=== PATIENT | male | born 1960 | race Caucasian/White ===

== ENCOUNTER 2020-04-26 08:16 | Emergency (ER) | payer OTHER, BC ==
[~2020-04-26] VITALS: Ht 193 cm; Wt 125.0 kg
[~2020-04-26 08:16] MED LIST: LATA2.5D6 OP; OMEP-84 PO
[2020-04-26] MEDS ORDERED: terbutaline 1 mg/ml inj SQ STA (09:16)
[2020-04-26] MEDS ORDERED: LIDOcaine 1% 30ml preserv. free vial SQ STA (09:20)
[2020-04-26] MEDS ORDERED: NORMAL SALINE IV ONE (09:25)
[2020-04-26] MEDS ORDERED: PHENYLEPHRINE IV ONE (09:25)
[2020-04-26] MEDS ORDERED: ibuprofen tablet 400 MG TABLET PO ONE (10:30)
[2020-04-26 10:56] VITALS: BP 143/92
== END 2020-04-26 10:59 | disposition home or self-care (01) ==
LOC: ER 08:16
DX: N48.30 Priapism, unspecified (principal); G47.30 Sleep apnea, unspecified; G89.29 Other chronic pain; F17.200 Nicotine dependence, unspecified, uncomplicated; Z79.899 Other long term (current) drug therapy
CPT/HCPCS: 54220; 96372; 99284; J3105; 96365

== ENCOUNTER 2020-05-18 08:15 | Emergency (ER) | payer OTHER, BC ==
[~2020-05-18] VITALS: Ht 193 cm; Wt 123.6 kg
[2020-05-18 08:28] VITALS: BP 141/92
== END 2020-05-18 09:39 ==
LOC: ER 08:16
DX: Z00.00 Encounter for general adult medical examination without abnormal findings (principal); G47.30 Sleep apnea, unspecified; G89.29 Other chronic pain; Z79.899 Other long term (current) drug therapy
CPT/HCPCS: 99283